=== PATIENT | female | born 1975 | race American Indian/Alaskan Native ===

== ENCOUNTER 2019-01-12 20:56 | Inpatient (IN) | payer MEDICAID ==
[2019-01-12] MEDS ORDERED: LACTATED RINGERS 1,000 ML IV ONE (21:46)
[2019-01-12 22:41] LABS: Hemoglobin 9.9 gm/dl (10.1-14.3); Mean Corpuscular HGB Conc 33 % (30-34); Mean Corpuscular Volume 70 fl (79-97); Platelet Count 234 K/mm3 (140-440); Red Blood Count 4.29 M/mm3 (3.65-5.03)
[2019-01-13] MEDS ORDERED: BRETHINE SUB-Q PRN (00:07)
[2019-01-13] MEDS ORDERED: XYLOCAINE 2% INFILTRATI ONE (00:07)
--- NOTE | 2019-01-13 00:52 | History and Physical Report ---
History of Present Illness Date of examination: 01/12/19 Date of admission: 01/12/19 20:56 Chief complaint: Here for induction of labor. History of present illness: 43 year old presents at 41 2/7 weeks gestation for induction of labor. LMP uncertain. EDC 01/03/19 based on US done at presentation for care (patient had late care). 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 denies: abnormal PAP smear, cancer, chlamydia, gonorrhea, hepatitis B, hepatitis C, HIV, syphilis Family/Genetic History: diabetes, heart disease, hypertension, stroke, cancer Social history: lives with family. denies: smoking, alcohol abuse, prescription drug abuse, full code - Obstetrical History Expected Date of Delivery: 01/03/19 Actual Gestation: 41 Week(s) 3 Day(s) : 3 Para: 1 Hx # Term Pregnancies: 1 Number of Pregnancies: 0 Spontaneous Abortions: 1 Induced : 0 Number of Living Children: 1 Medications and Allergies Allergies Allergy/AdvReac Type Severity Reaction Status Date / Time No Known Allergies Allergy Verified 01/12/19 22:37 Home Medications Medication Instructions Recorded Confirmed Last Taken Type No Known Home Medications [No 01/12/19 01/12/19 Unknown History Reported Home Medications] Active Meds: Active Medications Ephedrine Sulfate (Ephedrine Sulfate) 10 mg IV Q2M PRN PRN Reason: Hypotension Lactated Ringer's (Lactated Ringers) 1,000 mls @ 125 mls/hr IV DIRECT SHOAIB Oxytocin/Sodium Chloride (Pitocin/Ns 20 Unit/1000ml Drip) 20 units in 1,000 mls @ 125 mls/hr IV DIRECT SHOAIB Oxytocin/Sodium Chloride (Pitocin/Ns 30 Unit/500ml) 30 units in 500 mls @ 1 mls/hr IV TITR SHOAIB; Protocol Terbutaline Sulfate (Brethine) 0.25 mg SUB-Q ONCE PRN PRN Reason: Hyperstimulation/Hypertonicity Review of Systems All systems: negative (mild irregular contractions) - Vital Signs Vital signs: Vital Signs Temp Pulse Resp 98.6 F 86 22 01/12/19 21:18 01/12/19 21:18 01/12/19 21:18 Temp Pulse Resp BP Pulse Ox 98.2 F 94 H 20 132/71 01/13/19 00:34 01/13/19 00:20 01/13/19 00:34 01/13/19 00:20 - Physical Exam Cardiovascular: Regular rate, Normal S1, Normal S2 Lungs: Positive: Clear to auscultation Abdomen: Positive: normal appearance, soft. Negative: distention, tenderness, guarding, rigidity Genitourinary (Female): Positive: normal external genitalia. Negative: perineal/vulvar lesions Vagina: Positive: normal moisture Cervix: Positive: lesion Anus/Rectum: Positive: normal perianal skin Extremities: Positive: normal. Negative: tenderness - Obstetrical FHR: category 2 Cervical Dilatation: 0 Cervical Effacement Percentage: 30 (Exam by RN) station: -3 Uterine Contraction Pattern: Regular Uterine Contraction Intensity: Mild Results Result Diagrams: 01/12/19 22:00 Abnormal lab results 01/12/19 Range/Units 22:00 WBC 11.2 H (4.5-11.0) K/mm3 Hgb 9.9 L (10.1-14.3) gm/dl Hct 30.0 L (30.3-42.9) % MCV 70 L (79-97) fl MCH 23 L (28-32) pg RDW 20.0 H (13.2-15.2) % All other labs normal. Assessment and Plan A: at 41 2/7 weeks gestation. GBS negative. EDC based on 3rd trimester US. HSV 2 positive on Valtrex suppression. P: Admit. Cervical ripening and induction of labor. Discussed with patient risks and benefits of cervical ripening and induction of labor. Patient consented to cervical ripening and induction of labor. Continue Valtrex suppression of HSV.
[2019-01-13] MEDS ORDERED: PITOCin/NS 20 UNIT/1000ML DRIP 20 UNITS/1,000 ML BAG IV SCH (01:00)
[2019-01-13] MEDS ORDERED: PITOCin/NS 30 UNIT/500ML 30 UNITS/500 ML BAG IV SCH (01:00)
[2019-01-13] MEDS ORDERED: LACTATED RINGERS 1,000 ML IV SCH (01:00)
[2019-01-13] MEDS: VALTREX PO SCH ×2 (02:35→10:25)
--- NOTE | 2019-01-13 09:26 | Event Note ---
Date: 01/13/19 SVE today: closed, thick, posterior, firm, head high (out of pelvis). Consulted with Dr. Xavier re: this patient and advised her of unfavorable cervix and high head. Advised Dr. Xavier of heart rate tracing. Dr. Xavier states to stop Pitocin and do an ultrasound for BPP and NIC. Dr. Xavier states if BPP and NIC are normal we may discharge patient. Patient states she never got a glucose challenge test at office. 1 hour glucose challenge test ordered for patient.
[2019-01-13 17:28] VITALS: BP 124/58
--- NOTE | 2019-01-13 17:37 | Ultrasound Report ---
PROCEDURE: US OB BPP WO NON-STRESS TECHNIQUE: Sonographic evaluation for breathing, movement, tone, and amniotic flui d volume was performed. HISTORY: well being COMPARISONS: None . FINDINGS: FETUS heart rate of 138 bpm is detected. Amniotic fluid volume Normal-score 2. At least one vertical pocket >2 cm or more in vertical axis . breathing: Normal-score 2 . movement: Normal-score 2 . tone: Normal-score 2 . Score: 8 of 8 . IMPRESSION: Normal biophysical profile . 05/31. This document is electronically signed by Benson Ferrell MD., January 13 2019 05:34:48 PM ET
--- NOTE | 2019-01-13 17:39 | Ultrasound Report ---
PROCEDURE: US OB LIMITED TECHNIQUE: Limited OB ultrasound was performed to evaluate amniotic fluid index. Sampling of 4 quadr ants obtained. HISTORY: well being . Evaluate amniotic fluid index COMPARISONS: FINDINGS: Single living intrauterine gestation currently visualized vertex presentation. Subjectively the amoun t of amniotic fluid appears normal. Amniotic fluid index is normal measuring 9.9 cm. Degenerative exam the fetus was not performed as this was not requested. IMPRESSION: Single living intrauterine gestation currently visualized vertex presentation. Subjectively the amnio tic fluid index amount of amniotic fluid appears normal.. This document is electronically signed by Benson Ferrell MD., January 13 2019 05:37:37 PM ET
--- NOTE | 2019-01-13 17:44 | Ultrasound Report ---
PROCEDURE: US OB VELOCIMETRY UMBILCAL ART TECHNIQUE: Pulse Doppler imaging and color flow Doppler imaging of the umbilical artery was obtained . HISTORY: well being COMPARISONS: FINDINGS: heart rate of 138 bpm is detected. Systolic to diastolic ratios 2.02, normal. Resistive index is normal, 0.50. Good diastolic flow is vi sualized. IMPRESSION: Normal exam.. This document is electronically signed by Benson Ferrell MD., January 13 2019 05:41:59 PM ET
[2019-01-13 18:37] LABS: Bilirubin,Urine NEG (Negative); Blood,Urine NEG (Negative); Color,Urine Yellow (Yellow); Mucus,Urine FEW /HPF; Protein,Urine <15 mg/dL mg/dL (Negative); Urobilinogen,Urine < 2.0 mg/dL (<2.0)
--- NOTE | 2019-01-13 18:55 | Event Note ---
Date: 01/13/19 Urinalysis negative; normal VS. Afebrile. Patient reports active movement. Patient denies contractions, abdominal pain, leaking of fluid, vaginal bleeding. Patient denies cough, sore throat, ear pain, chest pain, shortness of breath, or urinary symptoms. heart rate tracing category 1. BPP 8/8, normal NIC, normal cord dopplers. Cervix closed, thick, high, posterior, firm, cephalic presentation. No contractions. Patient is not in labor. EDC is based on late third trimester US as patient presented late for care. Dr. Xavier orders to discharge patient home and have patient follow up at the [facility] office on Tuesday01/15/19 for BPP and cervix recheck; patient to see MD on Tuesday at [facility]. Advised patient to perform daily movement counting and technique for performing movement counting was discussed with patient. Warning signs of late and signs of labor were discussed with patient in detail. Advised patient to return promptly if any problems. Patient voiced understanding of all instructions.
--- NOTE | 2019-01-13 19:01 | Discharge Summary ---
<STUART BRYSON - Last Filed: 01/13/19 18:56> Providers - Providers Date of Admission: 01/12/19 20:56 Date of discharge: 01/13/19 Attending physician: FREDY PARSONS Primary care physician: FREDY PARSONS Hospitalization Reason for admission: other ( undelivered) Delivery: other (Undelivered, not in labor) Discharge diagnosis: other ( undelivered) Pertinent studies: Labs, ultrasound Hospital course: Normal hospital course Condition at discharge: Good Disposition: DC-01 TO HOME OR SELFCARE - Discharge Diagnoses (1) Status: Acute Plan - Provider Discharge Summary Diet: routine Additional instructions: Call your doctor immediately for: Signs of labor, leaking of fluid, vaginal bleeding, decreased movement, or any other problems. - Follow up plan Follow up: FREDY PARSONS MD [Primary Care Provider] - 01/15/19 Forms: [facility] Discharge Summary <FREDY PARSONS - Last Filed: 01/15/19 09:19> Providers - Providers Date of Admission: 01/12/19 20:56 Attending physician: LYLA MYERS MD WAS THE ATTENDING PHYSICIAN, NOT FREDY PARSONS MD. I WAS NOT TOURIST GUIDE AND DID DID NOT SUPERVISE THIS VISIT. Primary care physician: LYLA MYERS MD WAS THE ATTENDING PHYSICIAN, NOT FREDY PARSONS MD. I WAS NOT TOURIST GUIDE AND DID DID NOT SUPERVISE THIS VISIT. Plan - Provider Discharge Summary Additional instructions: [] Smoking cessation referral if applicable(refer to patient education folder for contact #) [] Refer to [facility] Booklet Call your doctor immediately for: * Fever > 100.5 * Heavy vaginal bleeding ( >1 pad per hour) * Severe persistent headache * Shortness of breath * Reddened, hot, painful area to leg or breast * Drainage or odor from incision. * Keep incision clean and dry at all times and follow doctor's instructions regarding bathing/showering
== END 2019-01-13 19:30 | disposition home or self-care (01) | DRG 782 ==
LOC: LD 20:56
PROVIDERS: ADMIT Obstetrics & Gynecology; ATTEND Obstetrics & Gynecology
PROC: 3E0P7VZ Introduction of Hormone into Female Reproductive, Via Natural or Artificial Opening (ICD-10-PCS; principal; 2019-01-13)
DX: O99.213 Obesity complicating pregnancy, third trimester (principal); E66.9 Obesity, unspecified; Z80.9 Family history of malignant neoplasm, unspecified; Z83.3 Family history of diabetes mellitus; Z82.49 Family history of ischemic heart disease and other diseases of the circulatory system; Z82.3 Family history of stroke; Z3A.41 41 weeks gestation of pregnancy; O36.93X0 Maternal care for fetal problem, unspecified, third trimester, not applicable or unspecified
CPT/HCPCS: 36415; 76815; 76819; 76820; 81001; 84439; 84443; 85027; 86592; 86850; 86900; 86901; G0378; J2590; J7120

== ENCOUNTER 2019-01-15 21:31 | Inpatient (IN) | payer MEDICAID ==
[2019-01-15] MEDS ORDERED: MINERAL OIL PO PRN (21:43)
[2019-01-15] MEDS ORDERED: ZOFRAN IV PRN (21:43)
[2019-01-15] MEDS ORDERED: AMPICILLIN/NS 2 GM/100 ML 2 GM/100 ML BAG IV ONE (21:43)
[2019-01-15] MEDS ORDERED: XYLOCAINE 2% INFILTRATI ONE (21:43)
[2019-01-15] MEDS ORDERED: BRETHINE SUB-Q PRN (21:43)
[2019-01-15] MEDS ORDERED: NARCAN 0.4 MG/1 ML IV PRN (21:43)
[2019-01-15] MEDS ORDERED: CERVIDIL VG ONE (21:43)
[2019-01-15] MEDS ORDERED: SUBLIMAZE IV PRN (21:43)
[2019-01-15] MEDS ORDERED: PITOCin/NS 20 UNIT/1000ML DRIP 20 UNITS/1,000 ML BAG IV SCH (22:00)
[2019-01-15] MEDS ORDERED: PITOCin/NS 30 UNIT/500ML 30 UNITS/500 ML BAG IV SCH (22:00)
--- NOTE | 2019-01-15 22:00 | History and Physical Report ---
History of Present Illness Chief complaint: sent from clinic for scheduled induction by midwives History of present illness: 43yo 41 5/7 weeks (due to late care range EGA 38 5/7 to 41 5/7 wks) was transferred from clinic for induction due to post dates and non- reactive NST. Patient presented 12/09 and was notified of unknown and was assigned an KASHIF of 01/03/17. She reports good movement, no loss of fluid and no vaginal bleeding. On 01/12 she was admitted for labor induction and started on Pitocin. 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 Since learning of 12/10, she has been monitored weekly and NIC decreased from 16 to 9. Her BPP was 8/8 on 01/12. Labs revealed elevated LDH 1977, elevated ALT 131, elevated TSH 4.2 with normal free T4, subclinical hy pothyroidism. No diabetes screen, genetic screening or GBS is in chart. Today in clinic it was verbally reported that her NST was non-reactive so she was sent for induction of labor. 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 ) - Obstetrical History Expected Date of Delivery: 01/03/19 Actual Gestation: 41 Week(s) 5 Day(s) : 3 Hx # Term Pregnancies: 1 Spontaneous Abortions: 1 Number of Living Children: 1 Medications and Allergies Allergies Allergy/AdvReac Type Severity Reaction Status Date / Time No Known Allergies Allergy Verified 01/12/19 22:37 Home Medications Medication Instructions Recorded Confirmed Last Taken Type No Known Home Medications [No 01/12/19 01/12/19 Unknown History Reported Home Medications] Active Meds: Active Medications Dinoprostone (Cervidil) 10 mg VG ONCE ONE Stop: 01/15/19 21:44 Ephedrine Sulfate (Ephedrine Sulfate) 10 mg IV Q2M PRN PRN Reason: Hypotension Fentanyl (Sublimaze) 100 mcg IV Q2H PRN PRN Reason: Labor Pain Ampicillin Sodium (Polycillin/Ns 2 Gm/100 Ml) 2 gm in 100 mls @ 100 mls/hr IV ONCE ONE; Protocol Stop: 01/15/19 22:42 Lactated Ringer's (Lactated Ringers) 1,000 mls @ 125 mls/hr IV DIRECT SHOAIB Oxytocin/Sodium Chloride (Pitocin/Ns 20 Unit/1000ml Drip) 20 units in 1,000 mls @ 125 mls/hr IV DIRECT SHOAIB Oxytocin/Sodium Chloride (Pitocin/Ns 30 Unit/500ml) 30 units in 500 mls @ 2 mls/hr IV TITR SHOIAB; Protocol Lidocaine (Xylocaine 2%) 20 ml INFILTRATI ONCE ONE Stop: 01/15/19 21:44 Mineral Oil (Mineral Oil) 30 ml PO QHS PRN PRN Reason: Constipation Naloxone HCl (Narcan 0.4 Mg/1 Ml) 0.1 mg IV Q2MIN PRN PRN Reason: Res Rate </= 8 or 02 SAT < 92% Ondansetron HCl (Zofran) 4 mg IV Q8H PRN PRN Reason: Nausea And Vomiting Terbutaline Sulfate (Brethine) 0.25 mg SUB-Q ONCE PRN PRN Reason: Hyperstimulation/Hypertonicity - Vital Signs Vital signs: Vital Signs Temp 98.7 F 01/15/19 21:28 Temp Pulse Resp BP Pulse Ox 98.7 F 01/15/19 21:28 - Physical Exam Abdomen: Positive: soft - Obstetrical FHR: category 2 (1 variable deceleration noted) Results All other labs normal. Assessment and Plan - Patient Problems (1) Morbid obesity Current Visit: Yes Status: Acute (2) 41 weeks gestation of Current Visit: Yes Status: Acute Plan to address problem: Continuous monitoring. Cervidil induction. Repeat CMP, LDH. Draw Hemoglobin A1C. Anticipate spontaneous vaginal delivery. (3) Advanced maternal age (AMA), 40 years or greater Current Visit: No Status: Acute (4) Subclinical hypothyroidism Current Visit: Yes Status: Acute
[2019-01-16 00:55] LABS: Hematocrit 31.4 % (30.3-42.9); Hemoglobin 10.8 gm/dl (10.1-14.3); Mean Corpuscular HGB Conc 34 % (30-34); Mean Corpuscular Volume 70 fl (79-97); Platelet Count 239 K/mm3 (140-440); Red Blood Count 4.49 M/mm3 (3.65-5.03)
[2019-01-16] MEDS: LACTATED RINGERS 1,000 ML IV SCH ×2 (01:00→21:47)
[2019-01-16 01:06] LABS: Red Cell Distribution Width 20.6 % (13.2-15.2)
[2019-01-16 01:35] LABS: Alanine Aminotransferase 8 units/L (7-56); Albumin 3.2 g/dL (3.9-5); BUN/Creatinine Ratio 13; Blood Urea Nitrogen 8 mg/dL (7-17); Calcium 9.4 mg/dL (8.4-10.2); Hemolysis Index 1
--- NOTE | 2019-01-16 11:49 | Progress Note ---
Assessment and Plan A: 43 yo, @ 41.6 wks gestation IOL-postdates Limited/late PNC AMA B+ blood type GBS negative Obesity HSV2 (prophylaxis started 01/01/19) P: Continue routine L & D orders Cervidil inplace Anticipate Subjective - Subjective Date of service: 01/16/19 (0900) Principal diagnosis: IOL-postdates; Maternal obesity:AMA Interval history: See Admission H & P Patient reports: movement normal, contractions (irregular), no loss of fluid, no vaginal bleeding Objective - Vital Signs Vital Signs: Vital Signs - 12hr 01/16/19 01/16/19 01/16/19 01:25 01:27 05:59 Temperature 97.8 F Pulse Rate 98 H 98 H 100 H Respiratory 16 Rate Blood Pressure 143/73 115/69 Blood Pressure 143/73 [Right] 01/16/19 01/16/19 01/16/19 07:00 08:01 08:59 Temperature Pulse Rate 86 85 87 Respiratory Rate Blood Pressure 133/76 137/76 139/69 Blood Pressure [Right] 01/16/19 01/16/19 09:59 10:59 Temperature Pulse Rate 85 78 Respiratory Rate Blood Pressure 129/68 132/71 Blood Pressure [Right] - Exam Breasts: deferred Cardiovascular: Regular rate Lungs: Normal air movement Abdomen: Present: other (gravid) Uterus: Present: other (S>D) FHR: category 1 Uterine Contraction Monitor Mode: External Uterine Contraction Frequency (min): 3-5 Uterine Contraction Pattern: Irregular Uterine Tone Measurement Phase: Resting Uterine Contraction Intensity: Mild Extremities: normal Deep Tendon Reflex Grade: Normal +2 - Labs Labs: Abnormal Labs 01/15/19 01/15/19 23:00 23:56 WBC 11.3 H MCV 70 L MCH 24 L RDW 20.6 H Sodium 134 L Carbon Dioxide 18 L Creatinine 0.6 L Glucose 122 H Alkaline Phosphatase 131 H Albumin 3.2 L Laboratory Results - last 24 hr 01/15/19 01/15/19 01/15/19 23:00 23:00 23:56 WBC 11.3 H RBC 4.49 Hgb 10.8 Hct 31.4 MCV 70 L MCH 24 L MCHC 34 RDW 20.6 H Plt Count 239 Sodium 134 L Potassium 3.6 Chloride 104.7 Carbon Dioxide 18 L Anion Gap 15 BUN 8 Creatinine 0.6 L Estimated GFR > 60 BUN/Creatinine Ratio 13 Glucose 122 H Hemoglobin A1c Calcium 9.4 Total Bilirubin 0.20 AST 15 ALT 8 Alkaline Phosphatase 131 H Total Protein 6.5 Albumin 3.2 L Albumin/Globulin Ratio 1.0 Blood Type B POSITIVE Antibody Screen Negative 01/15/19 23:56 WBC RBC Hgb Hct MCV MCH MCHC RDW Plt Count Sodium Potassium Chloride Carbon Dioxide Anion Gap BUN Creatinine Estimated GFR BUN/Creatinine Ratio Glucose Hemoglobin A1c 5.5 Calcium Total Bilirubin AST ALT Alkaline Phosphatase Total Protein Albumin Albumin/Globulin Ratio Blood Type Antibody Screen
[2019-01-16] MEDS ORDERED: REGLAN IV ONE (22:08)
[2019-01-16] MEDS ORDERED: PEPCID IV ONE (22:08)
[2019-01-16] MEDS ORDERED: BICITRA PO ONE (22:08)
--- NOTE | 2019-01-16 22:15 | Progress Note ---
Assessment and Plan A: 43 yo, @ 41.6 wks gestation IOL-postdates Limited/late PNC AMA B+ blood type GBS negative Obesity HSV2 (prophylaxis started 01/01/19) P: Continue routine L & D orders Cervidil removed Initiate Pitocin augmentation 1 hr post cervidil removal Anticipate Subjective - Subjective Date of service: 01/16/19 (6610) Principal diagnosis: IOL-postdates; Maternal obesity:AMA Interval history: See Admission H & P Patient reports: loss of fluid (clear fluids), movement normal, contractions (irregular), no vaginal bleeding Objective - Vital Signs Vital Signs: Vital Signs - 12hr 01/16/19 01/16/19 01/16/19 10:59 11:59 12:59 Temperature 98.1 F Pulse Rate 78 96 H 104 H Respiratory 18 Rate Blood Pressure 132/71 166/72 124/85 Blood Pressure [Right] O2 Sat by Pulse Oximetry 01/16/19 01/16/19 01/16/19 15:00 15:01 17:04 Temperature 98.7 F Pulse Rate 98 H 109 H Respiratory 18 Rate Blood Pressure 135/64 126/59 Blood Pressure [Right] O2 Sat by Pulse Oximetry 01/16/19 01/16/19 01/16/19 18:00 18:17 18:52 Temperature Pulse Rate 106 H 102 H 90 Respiratory Rate Blood Pressure 130/67 131/73 143/72 Blood Pressure [Right] O2 Sat by Pulse Oximetry 01/16/19 01/16/19 01/16/19 19:09 19:10 19:26 Temperature 96.5 F L Pulse Rate 86 86 Respiratory 20 20 Rate Blood Pressure 129/70 Blood Pressure 129/70 [Right] O2 Sat by Pulse Oximetry 01/16/19 01/16/19 01/16/19 19:53 19:56 19:57 Temperature Pulse Rate 87 87 Respiratory 18 Rate Blood Pressure 166/74 154/67 Blood Pressure [Right] O2 Sat by Pulse Oximetry 01/16/19 01/16/19 01/16/19 20:05 20:10 20:15 Temperature Pulse Rate 102 H 89 92 H Respiratory Rate Blood Pressure Blood Pressure [Right] O2 Sat by Pulse 100 100 100 Oximetry 01/16/19 01/16/19 01/16/19 20:20 20:21 20:23 Temperature Pulse Rate 108 H 110 H 86 Respiratory Rate Blood Pressure 141/61 Blood Pressure [Right] O2 Sat by Pulse 97 92 Oximetry 01/16/19 01/16/19 01/16/19 20:25 20:30 20:35 Temperature Pulse Rate 114 H 105 H 106 H Respiratory Rate Blood Pressure Blood Pressure [Right] O2 Sat by Pulse 100 100 100 Oximetry 01/16/19 01/16/19 01/16/19 20:40 20:41 20:45 Temperature Pulse Rate 104 H 106 H 93 H Respiratory Rate Blood Pressure Blood Pressure [Right] O2 Sat by Pulse 93 84 100 Oximetry 01/16/19 01/16/19 01/16/19 20:49 20:50 20:52 Temperature Pulse Rate 109 H 91 H 90 Respiratory Rate Blood Pressure 148/72 Blood Pressure [Right] O2 Sat by Pulse 92 100 Oximetry 01/16/19 01/16/19 01/16/19 20:55 20:59 21:00 Temperature Pulse Rate 91 H 61 91 H Respiratory Rate Blood Pressure Blood Pressure [Right] O2 Sat by Pulse 100 83 L 99 Oximetry 01/16/19 01/16/19 01/16/19 21:04 21:05 21:10 Temperature Pulse Rate 114 H 93 H 94 H Respiratory Rate Blood Pressure Blood Pressure [Right] O2 Sat by Pulse 93 98 98 Oximetry 01/16/19 01/16/19 01/16/19 21:15 21:19 21:20 Temperature Pulse Rate 97 H 99 H 103 H Respiratory Rate Blood Pressure 139/63 Blood Pressure [Right] O2 Sat by Pulse 100 100 Oximetry 01/16/19 01/16/19 01/16/19 21:22 21:25 21:30 Temperature Pulse Rate 110 H 102 H 95 H Respiratory Rate Blood Pressure Blood Pressure [Right] O2 Sat by Pulse 58 L 97 100 Oximetry 01/16/19 01/16/19 01/16/19 21:35 21:41 21:46 Temperature Pulse Rate 98 H 94 H 95 H Respiratory Rate Blood Pressure Blood Pressure [Right] O2 Sat by Pulse 99 100 99 Oximetry 01/16/19 01/16/19 01/16/19 21:51 21:56 22:01 Temperature Pulse Rate 89 102 H 95 H Respiratory Rate Blood Pressure Blood Pressure [Right] O2 Sat by Pulse 100 100 100 Oximetry 01/16/19 22:06 Temperature Pulse Rate 98 H Respiratory Rate Blood Pressure Blood Pressure [Right] O2 Sat by Pulse 100 Oximetry - Exam Breasts: deferred Cardiovascular: Regular rate Lungs: Normal air movement Abdomen: Present: other (gravid) Uterus: Present: other (S>D) FHR: category 1 Uterine Contraction Monitor Mode: External Cervical Dilatation: 1 Cervical Effacement Percentage: 70 station: -3 Uterine Contraction Pattern: Irregular Uterine Tone Measurement Phase: Resting Extremities: normal Deep Tendon Reflex Grade: Normal +2 - Labs Labs: Abnormal Labs 01/15/19 01/15/19 23:00 23:56 WBC 11.3 H MCV 70 L MCH 24 L RDW 20.6 H Sodium 134 L Carbon Dioxide 18 L Creatinine 0.6 L Glucose 122 H Alkaline Phosphatase 131 H Albumin 3.2 L Laboratory Results - last 24 hr 01/15/19 01/15/19 01/15/19 23:00 23:00 23:56 WBC 11.3 H RBC 4.49 Hgb 10.8 Hct 31.4 MCV 70 L MCH 24 L MCHC 34 RDW 20.6 H Plt Count 239 Sodium Potassium Chloride Carbon Dioxide Anion Gap BUN Creatinine Estimated GFR BUN/Creatinine Ratio Glucose Hemoglobin A1c Calcium Total Bilirubin AST ALT Alkaline Phosphatase Total Protein Albumin Albumin/Globulin Ratio RPR Nonreactive Blood Type B POSITIVE Antibody Screen Negative 01/15/19 01/15/19 23:56 23:56 WBC RBC Hgb Hct MCV MCH MCHC RDW Plt Count Sodium 134 L Potassium 3.6 Chloride 104.7 Carbon Dioxide 18 L Anion Gap 15 BUN 8 Creatinine 0.6 L Estimated GFR > 60 BUN/Creatinine Ratio 13 Glucose 122 H Hemoglobin A1c 5.5 Calcium 9.4 Total Bilirubin 0.20 AST 15 ALT 8 Alkaline Phosphatase 131 H Total Protein 6.5 Albumin 3.2 L Albumin/Globulin Ratio 1.0 RPR Blood Type Antibody Screen
--- NOTE | 2019-01-16 22:16 | Event Note ---
Date: 01/16/19 (1800) A: 43 yo, @ 41.6 wks gestation IOL-postdates Limited/late PNC AMA B+ blood type GBS negative Obesity HSV2 (prophylaxis started 01/01/19) Category 2 FHT SROM x 8.5 hrs, clear flds P: Continue routine L & D orders Pitocin @ 4 mu/min IV pain meds as desired Anticipate
[2019-01-16] MEDS ORDERED: BENADRYL IV PRN (22:24)
[2019-01-16] MEDS ORDERED: NARCAN 0.4 MG/1 ML IV PRN (22:24)
[2019-01-16] MEDS ORDERED: DILAUDID IV PRN (22:24)
[2019-01-16] MEDS ORDERED: PHENERGAN PR PRN (22:24)
[2019-01-16] MEDS ORDERED: ZOFRAN IV PRN (22:24)
[2019-01-16] MEDS ORDERED: PHENERGAN PO PRN (22:24)
--- NOTE | 2019-01-16 22:27 | Anesthesia Consultation ---
Anesthesia Consult and Med Hx - Airway Anesthetic Teeth Evaluation: Good ROM Head & Neck: Adequate Mental/Hyoid Distance: Adequate Mallampati Class: Class II Intubation Access Assessment: Probably Good - Pulmonary Exam CTA: Yes - Cardiac Exam Cardiac Exam: RRR - Pre-Operative Health Status ASA Pre-Surgery Classification: ASA2 Proposed Anesthetic Plan: Spinal - Pulmonary Hx Smoking: No Hx Asthma: No Hx Respiratory Symptoms: No SOB: No COPD: No Home Oxygen Therapy: No Hx Pneumonia: No - Cardiovascular System Hx Hypertension: No - Central Nervous System Hx Seizures: No Hx Psychiatric Problems: No - Endocrine Hx Renal Disease: No Hx End Stage Renal Disease: No Hx Hypothyroidism: No Hx Hyperthyroidism: No - Hematic Hx Anemia: No Hx Sickle Cell Disease: No - Other Systems Hx Alcohol Use: No
--- NOTE | 2019-01-16 22:28 | Anesthesia Day of Surgery ---
Anesthesia Day of Surgery - Day of Surgery Patient Examined: Yes Patient H&P Reviewed: Yes Patient is NPO: Yes Beta Blockers: No Cardiac Clearance: No Pulmonary Clearance: No Yoav's Test: N/A
--- NOTE | 2019-01-16 22:31 | Progress Note ---
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 Xavier concerning possible C/S Pitocin d/c Subjective - Subjective Date of service: 01/16/19 (2100) Principal diagnosis: IOL-postdates; Maternal obesity:AMA Interval history: See Admission H & P Patient reports: loss of fluid (clear fluids), movement normal, contractions (irregular), other ("It hurts so bad, I just want it over with, I want a C/S". Discussed the advantages of vaginal delivery vs C/S. Offered to stop Pitocin, have epidural placed to allow for better pain management, then restart Pitocin. Pt declined stating, "No I just want it over with, this is the worst". Call placed to Dr. Xavier to make aware, states she will come to assess and talk to pt.), no vaginal bleeding Objective - Vital Signs Vital Signs: Vital Signs - 12hr 01/16/19 01/16/19 01/16/19 10:59 11:59 12:59 Temperature 98.1 F Pulse Rate 78 96 H 104 H Respiratory 18 Rate Blood Pressure 132/71 166/72 124/85 Blood Pressure [Right] O2 Sat by Pulse Oximetry 01/16/19 01/16/19 01/16/19 15:00 15:01 17:04 Temperature 98.7 F Pulse Rate 98 H 109 H Respiratory 18 Rate Blood Pressure 135/64 126/59 Blood Pressure [Right] O2 Sat by Pulse Oximetry 01/16/19 01/16/19 01/16/19 18:00 18:17 18:52 Temperature Pulse Rate 106 H 102 H 90 Respiratory Rate Blood Pressure 130/67 131/73 143/72 Blood Pressure [Right] O2 Sat by Pulse Oximetry 01/16/19 01/16/19 01/16/19 19:09 19:10 19:26 Temperature 96.5 F L Pulse Rate 86 86 Respiratory 20 20 Rate Blood Pressure 129/70 Blood Pressure 129/70 [Right] O2 Sat by Pulse Oximetry 01/16/19 01/16/19 01/16/19 19:53 19:56 19:57 Temperature Pulse Rate 87 87 Respiratory 18 Rate Blood Pressure 166/74 154/67 Blood Pressure [Right] O2 Sat by Pulse Oximetry 01/16/19 01/16/19 01/16/19 20:05 20:10 20:15 Temperature Pulse Rate 102 H 89 92 H Respiratory Rate Blood Pressure Blood Pressure [Right] O2 Sat by Pulse 100 100 100 Oximetry 01/16/19 01/16/19 01/16/19 20:20 20:21 20:23 Temperature Pulse Rate 108 H 110 H 86 Respiratory Rate Blood Pressure 141/61 Blood Pressure [Right] O2 Sat by Pulse 97 92 Oximetry 01/16/19 01/16/19 01/16/19 20:25 20:30 20:35 Temperature Pulse Rate 114 H 105 H 106 H Respiratory Rate Blood Pressure Blood Pressure [Right] O2 Sat by Pulse 100 100 100 Oximetry 01/16/19 01/16/19 01/16/19 20:40 20:41 20:45 Temperature Pulse Rate 104 H 106 H 93 H Respiratory Rate Blood Pressure Blood Pressure [Right] O2 Sat by Pulse 93 84 100 Oximetry 01/16/19 01/16/19 01/16/19 20:49 20:50 20:52 Temperature Pulse Rate 109 H 91 H 90 Respiratory Rate Blood Pressure 148/72 Blood Pressure [Right] O2 Sat by Pulse 92 100 Oximetry 01/16/19 01/16/19 01/16/19 20:55 20:59 21:00 Temperature Pulse Rate 91 H 61 91 H Respiratory Rate Blood Pressure Blood Pressure [Right] O2 Sat by Pulse 100 83 L 99 Oximetry 01/16/19 01/16/19 01/16/19 21:04 21:05 21:10 Temperature Pulse Rate 114 H 93 H 94 H Respiratory Rate Blood Pressure Blood Pressure [Right] O2 Sat by Pulse 93 98 98 Oximetry 01/16/19 01/16/19 01/16/19 21:15 21:19 21:20 Temperature Pulse Rate 97 H 99 H 103 H Respiratory Rate Blood Pressure 139/63 Blood Pressure [Right] O2 Sat by Pulse 100 100 Oximetry 01/16/19 01/16/19 01/16/19 21:22 21:25 21:30 Temperature Pulse Rate 110 H 102 H 95 H Respiratory Rate Blood Pressure Blood Pressure [Right] O2 Sat by Pulse 58 L 97 100 Oximetry 01/16/19 01/16/1919 21:35 21:41 21:46 Temperature Pulse Rate 98 H 94 H 95 H Respiratory Rate Blood Pressure Blood Pressure [Right] O2 Sat by Pulse 99 100 99 Oximetry 01/16/19 01/16/19 01/16/19 21:51 21:56 22:01 Temperature Pulse Rate 89 102 H 95 H Respiratory Rate Blood Pressure Blood Pressure [Right] O2 Sat by Pulse 100 100 100 Oximetry 01/16/19 01/16/19 22:06 22:11 Temperature Pulse Rate 98 H 104 H Respiratory Rate Blood Pressure Blood Pressure [Right] O2 Sat by Pulse 100 99 Oximetry - Exam Breasts: deferred Cardiovascular: Regular rate Lungs: Normal air movement Abdomen: Present: other (gravid) Uterus: Present: other (S>D) FHR: category 2, other (repeated early decels with occasional late decels) Uterine Contraction Monitor Mode: External Cervical Dilatation: 1 Cervical Effacement Percentage: 90 station: -1 Uterine Contraction Frequency (min): 3-4 mins Uterine Contraction Duration: 50-60 sec Uterine Contraction Pattern: Irregular Uterine Tone Measurement Phase: Resting Uterine Contraction Intensity: Moderate Extremities: normal Deep Tendon Reflex Grade: Normal +2 - Labs Labs: Abnormal Labs 01/15/19 01/15/19 23:00 23:56 WBC 11.3 H MCV 70 L MCH 24 L RDW 20.6 H Sodium 134 L Carbon Dioxide 18 L Creatinine 0.6 L Glucose 122 H Alkaline Phosphatase 131 H Albumin 3.2 L Laboratory Results - last 24 hr 01/15/19 01/15/19 01/15/19 23:00 23:00 23:56 WBC 11.3 H RBC 4.49 Hgb 10.8 Hct 31.4 MCV 70 L MCH 24 L MCHC 34 RDW 20.6 H Plt Count 239 Sodium Potassium Chloride Carbon Dioxide Anion Gap BUN Creatinine Estimated GFR BUN/Creatinine Ratio Glucose Hemoglobin A1c Calcium Total Bilirubin AST ALT Alkaline Phosphatase Total Protein Albumin Albumin/Globulin Ratio RPR Nonreactive Blood Type B POSITIVE Antibody Screen Negative 01/15/19 01/15/19 23:56 23:56 WBC RBC Hgb Hct MCV MCH MCHC RDW Plt Count Sodium 134 L Potassium 3.6 Chloride 104.7 Carbon Dioxide 18 L Anion Gap 15 BUN 8 Creatinine 0.6 L Estimated GFR > 60 BUN/Creatinine Ratio 13 Glucose 122 H Hemoglobin A1c 5.5 Calcium 9.4 Total Bilirubin 0.20 AST 15 ALT 8 Alkaline Phosphatase 131 H Total Protein 6.5 Albumin 3.2 L Albumin/Globulin Ratio 1.0 RPR Blood Type Antibody Screen
--- NOTE | 2019-01-16 22:49 | Progress Note ---
Assessment and Plan - Patient Problems (1) 41 weeks gestation of Current Visit: Yes Status: Acute (2) Non-reassuring electronic monitoring tracing Current Visit: Yes Status: Acute Plan to address problem: I discussed the findings with the patient. I told her that she needs to be delivered via C/section. Risks, benefits, and alternatives of the procedure were discussed in detail with the patient which included but not limited to the risk of infection, hemorrhage requiring blood transfusion, injury to the bowel or bladder and blood vessels. She expressed understanding, her questions were answered, she gave her informed consent. Keep NPO. Anesthesia has been notified. Subjective - Subjective Date of service: 01/16/19 Principal diagnosis: SIUP at 41+ weeks gestation with NRFHT. Interval history: Patient is a 43 year old , EDC at 41 weeks and 6 days gestation who was admitted for labor induction for post dates. She was induced with cervidil last night and was started on pitocin earlier today. She ruptured spontaneously with clear fluid and progressed to 1 cm/90%/-2. I was called to evaluate the patient by the identity management developer for nonreassuring tracing. I found her lying in bed uncomfortably due to her contractions. tracing showed variables and late decelerations. Cervix: 1 cm/90%( identity management developer exam). Patient reports: loss of fluid (clear fluids), movement normal, contractions (irregular), other ("It hurts so bad, I just want it over with, I want a C/S". Discussed the advantages of vaginal delivery vs C/S. Offered to stop Pitocin, have epidural placed to allow for better pain management, then restart Pitocin. Pt declined stating, "No I just want it over with, this is the worst". Call placed to Dr. Xavier to make aware, states she will come to assess and talk to pt.), no vaginal bleeding Objective - Vital Signs Vital Signs: Vital Signs - 12hr 01/16/19 01/16/19 01/16/19 10:59 11:59 12:59 Temperature 98.1 F Pulse Rate 78 96 H 104 H Respiratory 18 Rate Blood Pressure 132/71 166/72 124/85 Blood Pressure [Right] O2 Sat by Pulse Oximetry 01/16/19 01/16/19 01/16/19 15:00 15:01 17:04 Temperature 98.7 F Pulse Rate 98 H 109 H Respiratory 18 Rate Blood Pressure 135/64 126/59 Blood Pressure [Right] O2 Sat by Pulse Oximetry 01/16/19 01/16/19 01/16/19 18:00 18:17 18:52 Temperature Pulse Rate 106 H 102 H 90 Respiratory Rate Blood Pressure 130/67 131/73 143/72 Blood Pressure [Right] O2 Sat by Pulse Oximetry 01/16/19 01/16/19 01/16/19 19:09 19:10 19:26 Temperature 96.5 F L Pulse Rate 86 86 Respiratory 20 20 Rate Blood Pressure 129/70 Blood Pressure 129/70 [Right] O2 Sat by Pulse Oximetry 01/16/19 01/16/19 01/16/19 19:53 19:56 19:57 Temperature Pulse Rate 87 87 Respiratory 18 Rate Blood Pressure 166/74 154/67 Blood Pressure [Right] O2 Sat by Pulse Oximetry 01/16/19 01/16/19 01/16/19 20:05 20:10 20:15 Temperature Pulse Rate 102 H 89 92 H Respiratory Rate Blood Pressure Blood Pressure [Right] O2 Sat by Pulse 100 100 100 Oximetry 01/16/19 01/16/19 01/16/19 20:20 20:21 20:23 Temperature Pulse Rate 108 H 110 H 86 Respiratory Rate Blood Pressure 141/61 Blood Pressure [Right] O2 Sat by Pulse 97 92 Oximetry 01/16/19 01/16/19 01/16/19 20:25 20:30 20:35 Temperature Pulse Rate 114 H 105 H 106 H Respiratory Rate Blood Pressure Blood Pressure [Right] O2 Sat by Pulse 100 100 100 Oximetry 01/16/19 01/16/19 01/16/19 20:40 20:41 20:45 Temperature Pulse Rate 104 H 106 H 93 H Respiratory Rate Blood Pressure Blood Pressure [Right] O2 Sat by Pulse 93 84 100 Oximetry 01/16/19 01/16/19 01/16/19 20:49 20:50 20:52 Temperature Pulse Rate 109 H 91 H 90 Respiratory Rate Blood Pressure 148/72 Blood Pressure [Right] O2 Sat by Pulse 92 100 Oximetry 01/16/19 01/16/19 01/16/19 20:55 20:59 21:00 Temperature Pulse Rate 91 H 61 91 H Respiratory Rate Blood Pressure Blood Pressure [Right] O2 Sat by Pulse 100 83 L 99 Oximetry 01/16/19 01/16/19 01/16/19 21:04 21:05 21:10 Temperature Pulse Rate 114 H 93 H 94 H Respiratory Rate Blood Pressure Blood Pressure [Right] O2 Sat by Pulse 93 98 98 Oximetry 01/16/19 01/16/19 01/16/19 21:15 21:19 21:20 Temperature Pulse Rate 97 H 99 H 103 H Respiratory Rate Blood Pressure 139/63 Blood Pressure [Right] O2 Sat by Pulse 100 100 Oximetry 01/16/19 01/16/19 01/16/19 21:22 21:25 21:30 Temperature Pulse Rate 110 H 102 H 95 H Respiratory Rate Blood Pressure Blood Pressure [Right] O2 Sat by Pulse 58 L 97 100 Oximetry 01/16/19 01/16/19 01/16/19 21:35 21:41 21:46 Temperature Pulse Rate 98 H 94 H 95 H Respiratory Rate Blood Pressure Blood Pressure [Right] O2 Sat by Pulse 99 100 99 Oximetry 01/16/19 01/16/19 01/16/19 21:51 21:56 22:01 Temperature Pulse Rate 89 102 H 95 H Respiratory Rate Blood Pressure Blood Pressure [Right] O2 Sat by Pulse 100 100 100 Oximetry 01/16/19 01/16/19 22:06 22:11 Temperature Pulse Rate 98 H 104 H Respiratory Rate Blood Pressure Blood Pressure [Right] O2 Sat by Pulse 100 99 Oximetry - Exam Cardiovascular: Normal S1, Normal S2 Lungs: Clear to auscultation Vulva: both: normal FHR: category 2 Uterine Contraction Monitor Mode: External Cervical Dilatation: 1 Cervical Effacement Percentage: 0 station: -2 Uterine Contraction Pattern: Regular Uterine Contraction Intensity: Strong/Firm Deep Tendon Reflex Grade: Normal +2 - Labs Labs: Abnormal Labs 01/15/19 01/15/19 23:00 23:56 WBC 11.3 H MCV 70 L MCH 24 L RDW 20.6 H Sodium 134 L Carbon Dioxide 18 L Creatinine 0.6 L Glucose 122 H Alkaline Phosphatase 131 H Albumin 3.2 L Laboratory Results - last 24 hr 01/15/19 01/15/19 01/15/19 23:00 23:00 23:56 WBC 11.3 H RBC 4.49 Hgb 10.8 Hct 31.4 MCV 70 L MCH 24 L MCHC 34 RDW 20.6 H Plt Count 239 Sodium Potassium Chloride Carbon Dioxide Anion Gap BUN Creatinine Estimated GFR BUN/Creatinine Ratio Glucose Hemoglobin A1c Calcium Total Bilirubin AST ALT Alkaline Phosphatase Total Protein Albumin Albumin/Globulin Ratio RPR Nonreactive Blood Type B POSITIVE Antibody Screen Negative 01/15/19 01/15/19 23:56 23:56 WBC RBC Hgb Hct MCV MCH MCHC RDW Plt Count Sodium 134 L Potassium 3.6 Chloride 104.7 Carbon Dioxide 18 L Anion Gap 15 BUN 8 Creatinine 0.6 L Estimated GFR > 60 BUN/Creatinine Ratio 13 Glucose 122 H Hemoglobin A1c 5.5 Calcium 9.4 Total Bilirubin 0.20 AST 15 ALT 8 Alkaline Phosphatase 131 H Total Protein 6.5 Albumin 3.2 L Albumin/Globulin Ratio 1.0 RPR Blood Type Antibody Screen - Results US- obstetric: report reviewed
[2019-01-16] MEDS ORDERED: WATER FOR IRRIG STERILE IR ONE (22:50)
[2019-01-16] MEDS ORDERED: NACL 0.9% IR ONE (22:50)
[2019-01-16] MEDS ORDERED: SUBLIMAZE ONE (22:54)
[2019-01-16] MEDS ORDERED: ZOFRAN ONE (22:54)
[2019-01-16] MEDS ORDERED: SODIUM CHLORIDE FLUSH SYRINGE 10 ML IV NR (23:00)
[2019-01-16] MEDS ORDERED: PITOCin/NS 20 UNIT/1000ML DRIP 20 UNITS/1,000 ML BAG IV SCH (23:00)
[2019-01-16] MEDS ORDERED: LACTATED RINGERS 1,000 ML IV SCH (23:00)
[2019-01-16] MEDS ORDERED: ANCEF/STERILE WATER 2 GM/20 ML 2 GM/20 ML SYRINGE IV NR (23:00)
[2019-01-16] MEDS ORDERED: NEO SYNEPHRINE/NS Syringe(OR USE) IV ONE (23:15)
[2019-01-17] MEDS ORDERED: METHERGINE IM ONE ×2 (00:01)
[2019-01-17] MEDS ORDERED: TORADOL ONE (00:10)
[2019-01-17] MEDS ORDERED: LACTATED RINGERS 1,000 ML ONE (00:10)
[2019-01-17] MEDS ORDERED: TUCKS PAD TP PRN (00:28)
[2019-01-17] MEDS ORDERED: LANSINOH TP PRN (00:28)
[2019-01-17] MEDS ORDERED: MILK OF MAGNESIA PO PRN (00:28)
[2019-01-17] MEDS ORDERED: ANUCORT-HC PR PRN (00:28)
[2019-01-17] MEDS ORDERED: ZOFRAN IV PRN (00:28)
[2019-01-17] MEDS ORDERED: TYLENOL PO PRN (00:28)
[2019-01-17] MEDS ORDERED: TORADOL IV PRN ×2 (00:28)
[2019-01-17] MEDS ORDERED: MYLICON PO PRN (00:28)
[2019-01-17] MEDS ORDERED: PERCOCET 5/325 PO PRN (00:28)
[2019-01-17] MEDS ORDERED: PHENERGAN PR PRN (00:28)
[2019-01-17] MEDS ORDERED: NARCAN 0.4 MG/1 ML IV PRN (00:28)
[2019-01-17] MEDS ORDERED: MORPHINE IV PRN ×2 (00:28)
[2019-01-17] MEDS ORDERED: SENOKOT PO PRN (00:28)
--- NOTE | 2019-01-17 00:28 | Post Anesthesia Evaluation ---
- Post Anesthesia Evaluation Patient Participated: Yes Airway Patent: Yes Stable Respiratory Function: Yes Nausea/Vomiting: No Temp > 96.8F: Yes Pain Manageable: Yes Adequeate Hydration: Yes Anesthesia Complications: No Block Receding Appropriately: Yes Patient on Ventilator: No
--- NOTE | 2019-01-17 00:37 | Operative Report ---
Operative Report Operative Report: Preoperative diagnosis 1. SIUP at 41 weeks and 6 days gestation with failed induction of labor. 2. CAT 3 tracing. 3. IUGR. Postoperative diagnosis: Same. Procedure: Primary low-transverse section. Surgeon: Dr. Xavier Grip Assembler: none Anesthesia: epidural. IVF: RL 1800 cc EBL: 400 cc Urine: 150 cc clear Complications: none. Intraoperative findings: 1. A male infant found in an RODNEY position, delivered at 11:28 PM, Apgars 8 at 1 minute and 9 at 5 minutes, weight 4 lbs. 3 oz. 2. Normal fallopian tubes and ovaries bilaterally. Procedure details: Risks, benefits, and alternatives of the procedure were discussed in detail with the patient which included but not limited to the risk of infection, hemorrhage requiring blood transfusion, injury to the bowel or bladder and blood vessels. The patient expressed understanding, her questions were answered, and she gave informed consent. The patient was taken to the operating room with an IV fluid infusing Ringers lactate. In the operating room, she was placed in a sitting position and given spinal anesthesia. She was then placed in a dorsal supine position with a leftward tilt. Power catheter in Venodyne boots were placed. The abdomen was washed and she was prepared and draped in usual sterile fashion. After confirming adequate anesthesia, the Pfannenstiel skin incision was made in the lower abdomen about 2 cm above the pubic symphysis using the scalpel. This incision was carried down to the underlying fascia using the Bovie. The fascia was opened bilaterally in a curvilinear fashion using the Bovie. 2 straight Kocker clamps were used to grasp the upper edge of the fascia from which the underlying rectus abdominis muscles was dissected off using the Bovie. A similar procedure was done with the lower edge of the fascia to dissect the underlying rectus abdominis muscle. The muscle was bluntly from the midline by pulling. The parietal peritoneum was grasped with 2 hemostat clamps and entered sharply using Metzenbaum scissors. A quick survey of the anatomy revealed a gravid uterus, normal fallopian tubes and ovaries bilaterally. A bladder flap was created. Joaquin'O retractor was placed in the incision for proper visualization. A low transverse incision was made in the lower uterine s egment using the scalpel and extended bilaterally in a curvilinear fashion using bandage scissors. There was scant amount of clear amniotic fluids. The was found in an RODNEY position, the head was delivered atraumatically followed by the delivery of the shoulders and the rest of the body at 11:28 PM. The cord was clamped 2 and cut and the infant was handed off to the waiting masonry contractor. The was a male, Apgars were 8 at 1 minute and 9 at 4 minutes, weight was 4 pounds and 3 ounces. Cord blood was collected. The placenta was delivered manually and it was complete with a three-vessel cord. The uterine cavity was cleaned of clots and debris using dry lap sponges. The uterine incision was repaired in a running locked fashion using 0 Vicryl sutures. A second layer of imbrication was placed. The gutters were cleaned of clots and debris using dry lap sponges. After confirming adequate hemostasis, the instruments were removed from the abdominal cavity. The rectus muscle was reapproximated in an interrupted fashion using 0 Vicryl sutures. The fascia was closed in a running fashion using 0 Vicryl sutures. The skin was closed with maicol. Sterile dressing was placed. The counts of laps, needles, sponges, and instruments were correct 2. The patient tolerated the procedure well, she was taken to the recovery room in a stable condition.
[2019-01-17] MEDS: LACTATED RINGERS 1,000 ML IV SCH ×2 (00:45→06:26)
[2019-01-17] MEDS ORDERED: SODIUM CHLORIDE FLUSH SYRINGE 10 ML IV NR (01:00)
[2019-01-17] MEDS ORDERED: PITOCin/NS 20 UNIT/1000ML DRIP 20 UNITS/1,000 ML BAG IV SCH (01:00)
[2019-01-17] MEDS: PRENATAL VITAMIN PO SCH (09:55)
[2019-01-17] MEDS: FEOSOL PO SCH (09:55)
--- NOTE | 2019-01-17 10:30 | Progress Note ---
Assessment and Plan A: POD #1 Stable P: Follow Routine PostOp Orders Subjective - Subjective Date of service: 01/17/19 Principal diagnosis: IOL-postdates; Maternal obesity:AMA Patient reports: appetite normal, voiding normally (luna in place), pain well controlled, flatus, ambulating normally [place]: doing well Objective - Vital Signs Latest vital signs: Vital Signs Temp Pulse Resp BP BP Pulse Ox 01/17/19 07:18 98.3 F 109 H 18 106/52 100 01/17/19 02:33 97.6 F 99 H 18 142/70 100 01/17/19 01:30 97.9 F 94 H 16 116/62 100 01/17/19 01:13 98 H 17 121/65 100 01/17/19 00:58 92 H 19 129/71 96 01/17/19 00:43 92 H 18 125/63 100 01/17/19 00:28 97.9 F 98 H 14 115/56 99 01/16/19 22:11 104 H 99 01/16/19 22:06 98 H 100 01/16/19 22:01 95 H 100 01/16/19 21:56 102 H 100 01/16/19 21:51 89 100 01/16/19 21:46 95 H 99 01/16/19 21:41 94 H 100 01/16/19 21:35 98 H 99 01/16/19 21:30 95 H 100 01/16/19 21:25 102 H 97 01/16/19 21:22 110 H 58 L 01/16/19 21:20 103 H 100 01/16/19 21:19 99 H 139/63 01/16/19 21:15 97 H 100 01/16/19 21:10 94 H 98 01/16/19 21:05 93 H 98 01/16/19 21:04 114 H 93 01/16/19 21:00 91 H 99 01/16/19 20:59 61 83 L 01/16/19 20:55 91 H 100 01/16/19 20:52 90 148/72 01/16/19 20:50 91 H 100 01/16/19 20:49 109 H 92 01/16/19 20:45 93 H 100 01/16/19 20:41 106 H 84 01/16/19 20:40 104 H 93 01/16/19 20:35 106 H 100 01/16/19 20:30 105 H 100 01/16/19 20:25 114 H 100 01/16/19 20:23 86 141/61 01/16/19 20:21 110 H 92 01/16/19 20:20 108 H 97 01/16/19 20:15 92 H 100 01/16/19 20:10 89 100 01/16/19 20:05 102 H 100 01/16/19 19:57 87 154/67 01/16/19 19:56 18 01/16/19 19:53 87 166/74 01/16/19 19:26 20 01/16/19 19:10 86 129/70 01/16/19 19:09 96.5 F L 86 20 129/70 01/16/19 18:52 90 143/72 01/16/19 18:17 102 H 131/73 01/16/19 18:00 106 H 130/67 01/16/19 17:04 109 H 126/59 01/16/19 15:01 98 H 135/64 01/16/19 15:00 98.7 F 18 01/16/19 12:59 104 H 124/85 01/16/19 11:59 98.1 F 96 H 18 166/72 01/16/19 10:59 78 132/71 Intake and Output 01/16/19 01/17/19 01/17/19 22:59 06:59 14:59 Intake Total 3281.250 480 Balance 3281.250 480 Intake: IV 3281.250 Lactated Ringers 1,000 ml 1081.250 @ 125 mls/hr IV DIRECT SHOAIB Rx#:[id number] Oral 480 Other: Total, Intake Amount 480 # Voids Void 1 Estimated Blood Loss 400 - Exam Breasts: Present: normal Cardiovascular: Present: Regular rate Lungs: Present: Clear to auscultation, Normal air movement Abdomen: Present: normal appearance, soft, normal bowel sounds Uterus: Present: normal, firm, fundal height below umbilicus Extremities: Present: normal Incision: Present: normal, dry, dressed
[2019-01-17 14:10] LABS: Hematocrit 27.3 % (30.3-42.9); Hemoglobin 8.9 gm/dl (10.1-14.3)
[2019-01-17] MEDS: IBUPROFEN PO PRN ×2 (17:13→23:40)
[2019-01-18] MEDS: IBUPROFEN PO PRN (08:01)
[2019-01-18] MEDS: PRENATAL VITAMIN PO SCH (11:00)
[2019-01-18] MEDS: FEOSOL PO SCH (11:00)
--- NOTE | 2019-01-18 11:13 | Progress Note ---
Assessment and Plan A: POD #2 s/p Primary c/s Asymptomatic anemia Stable P: Follow Routine PostOp Orders Infed 100mg IM x1 dose Discharge home today Subjective - Subjective Date of service: 01/18/19 Principal diagnosis: POD#2 s/p Primary C/S Patient reports: appetite normal, voiding normally, pain well controlled, flatus, ambulating normally, no bowel movement [place]: doing well, bottle feeding Objective - Vital Signs Latest vital signs: Vital Signs Temp Pulse Resp BP BP Pulse Ox 01/18/19 08:13 95 H 18 111/64 96 01/18/19 08:01 18 01/18/19 07:57 18 01/18/19 01:08 98.6 F 100 H 20 127/65 100 01/17/19 21:04 98.7 F 20 122/69 01/17/19 16:28 98.6 F 108 H 18 136/75 100 01/17/19 11:16 98.3 F 112 H 18 130/73 100 Intake and Output 01/17/19 01/18/19 01/18/19 23:59 07:59 15:59 Intake Total 480 240 360 Output Total 2600 Balance -2120 240 360 Intake: Oral 480 240 120 Intake, Free Water 240 Output: Urine 2600 Indwelling Catheter 1600 Void 1000 Other: Total, Intake Amount 480 240 120 Total, Output Amount 600 # Voids Indwelling Catheter 1 Void 1 1 - Exam Breasts: Present: normal Cardiovascular: Present: Regular rate, Normal S1, Normal S2, No murmurs Lungs: Present: Clear to auscultation, Normal air movement Abdomen: Present: normal appearance, soft, tenderness (as expected post-op), normal bowel sounds. Absent: distention Vulva: both: normal Uterus: Present: firm, fundal height below umbilicus (-1) Extremities: Present: normal Deep Tendon Reflex Grade: Normal +2 Incision: Present: normal, dry, intact - Labs Labs: Abnormal lab results 01/17/19 Range/Units 13:20 Hgb 8.9 L (10.1-14.3) gm/dl Hct 27.3 L (30.3-42.9) %
--- NOTE | 2019-01-18 11:19 | Discharge Summary ---
Providers - Providers Date of Admission: 01/16/19 22:33 Date of discharge: 01/18/19 Attending physician: FREDY PARSONS Primary care physician: FREDY PARSONS Hospitalization Reason for admission: induction of labor, IUP at term Delivery: Procedure: primary low transverse Procedure details: See H&P and operative note Incision: normal, dry, intact complications: none Discharge diagnosis: IUP at term delivered baby: male Condition at discharge: Good Disposition: DC-01 TO HOME OR SELFCARE Plan - Provider Discharge Summary Activity: routine, no sex for 6 weeks, no heavy lifting 4 weeks, no strenuous exercise Diet: routine Instructions: routine Additional instructions: [] Smoking cessation referral if applicable(refer to patient education folder for contact #) [] Refer to [facility] Booklet Call your doctor immediately for: * Fever > 100.5 * Heavy vaginal bleeding ( >1 pad per hour) * Severe persistent headache * Shortness of breath * Reddened, hot, painful area to leg or breast * Drainage or odor from incision. * Keep incision clean and dry at all times and follow doctor's instructions regarding bathing/showering - Follow up plan Follow up: FREDY PARSONS MD [Primary Care Provider] - 7 Days
[2019-01-18] MEDS ORDERED: INFED IM NR (12:00)
[2019-01-18 17:56] VITALS: BP 140/87
== END 2019-01-18 19:25 | disposition home or self-care (01) | DRG 766 ==
LOC: TRG 21:31 → LD 01-16 01:21 → TRG 01-16 22:32 → APU 01-16 22:33 → OB 01-17 02:57
PROVIDERS: ADMIT Obstetrics & Gynecology; ATTEND Obstetrics & Gynecology
PROC: 3E0P7VZ Introduction of Hormone into Female Reproductive, Via Natural or Artificial Opening (ICD-10-PCS; 2019-01-16)
PROC: 10D00Z1 Extraction of Products of Conception, Low, Open Approach (ICD-10-PCS; principal; 2019-01-17)
DX: O48.0 Post-term pregnancy (principal); Z3A.41 41 weeks gestation of pregnancy; Z37.0 Single live birth; O76 Abnormality in fetal heart rate and rhythm complicating labor and delivery; E66.01 Morbid (severe) obesity due to excess calories; O99.214 Obesity complicating childbirth; O99.284 Endocrine, nutritional and metabolic diseases complicating childbirth; E02 Subclinical iodine-deficiency hypothyroidism; O90.81 Anemia of the puerperium; D64.9 Anemia, unspecified; O61.0 Failed medical induction of labor; Z83.3 Family history of diabetes mellitus; Z82.49 Family history of ischemic heart disease and other diseases of the circulatory system
CPT/HCPCS: 36415; 80053; 83036; 85014; 85018; 85027; 86592; 86850; 86900; 86901; 88307; G0378; A6250; J0690; J1750; J1885; J2210; J2270; J2370; J2405; J2590; J2765; J3010; J7120